=== PATIENT | female | born 1940 | race Caucasian/White ===

== ENCOUNTER 2016-10-21 00:52 | Day surgery (SDC) | payer MEDICARE, OTHER ==
[2016-10-21] VITALS (15 sets, daily range): BP systolic 129–151; BP diastolic 51–63; PULSE 55–68; RESP 13–20; O2SAT 91–96
[~2016-10-21] VITALS: Ht 162.6 cm; Wt 65.0 kg
[~2016-10-21 00:52] MED LIST: AMLO10TA3 PO; ASPI325T32 PO; CHOL10008 PO; DICY10CA56 PO; LISI40TA PO; LOVA40TA PO; METF500T4 PO; MULT-666 PO; NITR0.4T SL; OMEG1CAP56 PO; PRD5T PO; SERT100T9 PO; VITA400C64 PO; ZLP5T PO
--- NOTE | 2016-10-21 06:00 | NUR ---
ADMISSION NOTE FEMALE PT ADMITTED FOR ANGIOGRAM. DISCUSSED PLAN OF CARE WITH PT AND FAMILY. SEE ADMIT AND FLOW SHEET
--- NOTE | 2016-10-21 06:30 | NUR ---
LABS PT 11.0 INR 0.9
[2016-10-21] MEDS ORDERED: 0.9% Sodium Chloride 1,000 ML IV ONE (06:41)
--- NOTE | 2016-10-21 07:30 | NUR ---
[address] BERNARD INSERTED
[2016-10-21] MEDS ORDERED: Heparin 10,000 Unit/1,000 mL NS Premix IV ONE (07:39)
[2016-10-21] MEDS ORDERED: Heparin 5,000 Units/500 mL NS Premix IV ONE ×2 (07:39→08:40)
[2016-10-21] MEDS ORDERED: fentaNYL-PF 50 mCg/mL 2 mL Inj ONE (07:54)
[2016-10-21] MEDS ORDERED: Heparin 1,000 Unit/mL 10 mL Inj ONE (08:19)
--- NOTE | 2016-10-21 09:30 | NUR ---
POST PROCEDURE NOTE RETURNED FROM [employer]. SEE FLOW SHEET
--- NOTE | 2016-10-21 14:00 | NUR ---
BERNARD CATHETER REMOVED
--- NOTE | 2016-10-21 14:30 | NUR ---
PT DISCHARGED AFTER BEING UP IN ROOM, NO COMPLAINTS. INSTRUCTIONS GIVEN. HOME WITH
--- NOTE | 2016-10-22 15:04 | PROCED ---
[address] [address] PROCEDURE NOTE PATIENT: SONU SMITH : 1940 MR#: [id number] ADMIT: 10/21/2016 JOB ID: [id number] DATE OF SERVICE: 10/21/2016 PREOPERATIVE DIAGNOSIS(ES): POSTOPERATIVE DIAGNOSIS(ES): SURGEON: Priscila Kimball MD. PROCEDURES PERFORMED: 1. Abdominal aortography. 2. Angiography within bilateral iliac angiography, as well as runoff bilaterally. 3. Focal injection at the level of the mid superficial femoral artery with angiography. INDICATIONS: A 76-year-old woman with peripheral vascular disease with claudication symptoms. She presents for further assessment by peripheral angiogram. DESCRIPTION OF PROCEDURE: Informed consent was obtained. The patient brought to the catheterization laboratory. Bilateral groins were prepped and draped in the usual sterile fashion. The right femoral artery was anesthetized with lidocaine. Using modified Seldinger technique and a micropuncture kit, access was obtained and a 5-Rwandan sheath was advanced. Next, a 5-Rwandan pigtail catheter was advanced into the descending aorta and aortography was performed with bilateral runoff. After review of this, plans were made to get more selective views of the left superficial femoral artery given the patient's symptoms. A RIM catheter was advanced over the horn and this facilitated passage of a Glidewire, which then facilitated passage of a 5-Rwandan Gwyn sheath. The Gwyn sheath was advanced to the level of the common femoral artery, where further angiographic views were obtained. To get better imaging of the superficial femoral artery, a VERT catheter was advanced over a 0.018 wire to the level of the mid superficial femoral artery. Focal angiographic views were obtained to further assess the superficial femoral artery. Given need to review the patient's studies in consideration of possible interventions, the case was ended at this juncture. All sheaths and catheters were removed. Hemostasis was achieved via manual compression. There were no complications. FINDINGS: AORTOGRAPHY: There is evidence of an approximately 30% stenosis in the abdominal aorta prior to the takeoff of the iliacs. The iliac arteries have bilateral stents, which appear widely patent. The external iliacs have mild disease. Common femoral arteries have mild disease. The profunda do not have significant disease. On the right leg, the superficial femoral artery continues down with ectatic plaque appreciated throughout the extent of the artery. 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 The popliteal artery continues down. The patient has a three-vessel runoff. Left superficial femoral artery, this vessel has ectasia to about the mid segment getting close to the adductor canal where there was a previously ectatic area seen on the films of 2012. This is now occluded. However, there is an additional branch of the vessel which appears to cover the seclusion, and it is unclear if this represents a bridging collateral. The superficial femoral artery continues down to the level of the popliteal artery without evidence of obstructive disease and appears to have three-vessel runoff to the foot. IMPRESSION: 1. Evidence for an approximately 40% stenosis in the abdominal aorta. 2. Widely patent iliac stents in the bilateral iliacs. 3. No significant iliac disease appreciated. 4. No significant common femoral disease or profunda disease appreciated. 5. Evidence for ectatic lesions in the right superficial femoral artery with good distal runoff on the right. On the left, there is an area of stenosis. However, it appears occlusion but possible bridging collateral. As the anatomy is particularly clear at this juncture, no intervention was performed at this time.
== END 2016-10-21 23:59 | disposition home or self-care (01) ==
LOC: SOUO 00:52
PROVIDERS: ATTEND Internal Medicine
DX: I70.213 Atherosclerosis of native arteries of extremities with intermittent claudication, bilateral legs (principal); I70.0 Atherosclerosis of aorta; Z95.820 Peripheral vascular angioplasty status with implants and grafts; E78.5 Hyperlipidemia, unspecified; I10 Essential (primary) hypertension; E03.9 Hypothyroidism, unspecified; E11.40 Type 2 diabetes mellitus with diabetic neuropathy, unspecified; Z79.84 Long term (current) use of oral hypoglycemic drugs; Z87.891 Personal history of nicotine dependence; Z95.5 Presence of coronary angioplasty implant and graft
CPT/HCPCS: 36247; 75625; 75716; 75774; 99152; 99153; C1769; J0131; J1200; J1644; J2060; J2250; J3010; J7030; Q9967